=== PATIENT | female | born 1955 | race Caucasian/White ===

== ENCOUNTER 2020-07-10 00:31 | Observation (INO) ==
[2020-07-10] MEDS ORDERED: *HR* Heparin 5,000 UNIT/ML VIAL IVP ONE (00:43)
[2020-07-10] MEDS ORDERED: *HR* Heparin 5,000 UNIT/ML VIAL IVP PRN ×2 (00:43)
[2020-07-10] MEDS ORDERED: DilTIAZem 50 MG/50 ML IV.SOLN IVC SCH (00:45)
[2020-07-10] MEDS: Heparin 25,000UNIT/250ML 1/2NS 25,000 UNIT/250 ML IV.SOLN IVC SCH ×2 (01:02→21:59)
[2020-07-10 01:03] LABS: Basophils # 0.1 K/mcL (0.0-0.2); Basophils % 0.5 %; Eosinophils # 0.5 K/mcL (0.0-0.6); Eosinophils % 3.4 %; Hematocrit 43.6 % (35.3-44.9); Hemoglobin 14.4 g/dL (11.5-15.4); Immature Granulocytes % 0.6 % (0-4); Lymphocytes # 3.9 K/mcL (0.6-4.6); Lymphocytes % 28.5 %; Mean Corpuscular Hemoglobin 29.4 pg (28.0-33.3); Mean Corpuscular Volume 89.2 fL (83.0-100.0); Mean Platelet Volume 9.4 fL (9.4-12.4); Monocytes # 0.9 K/mcL (0.0-1.3); Monocytes % 6.8 %; Neutrophils # 8.2 K/mcL (1.6-8.9); Platelet Count 343 K/mcL (140-400); Red Blood Count 4.89 M/mcL (3.82-4.97); Segmented Neutrophils % 60.2 %; White Blood Count 13.6 K/mcL (4.3-11.1)
[2020-07-10 01:11] LABS: INR 0.9; Prothrombin Time 10.5 Seconds (9.4-12.1)
[2020-07-10 01:14] LABS: Activated Partial Thrombo Time 27.4 Seconds (26.0-36.0); Heparin anti-factor XA UFH < 0.04 IU/mL (0.30-0.70)
[2020-07-10] MEDS ORDERED: 0.9 % Sodium Chloride 500 ML ONE (01:16)
[2020-07-10 01:25] LABS: BUN/Creatinine Ratio 22 (6-26); Blood Urea Nitrogen 17 mg/dL (8-23); Calcium 9.5 mg/dL (8.6-10.3); Carbon Dioxide 27 mEq/L (23-29); Chloride 104 mEq/L (98-107); Glucose 271 mg/dL (70-105); Osmolality,Calculated 297 (280-300); Potassium 3.9 mEq/L (3.5-5.1); Sodium 138 mEq/L (136-145); Troponin I < 0.03 ng/mL (< 0.04); eGFR For African Americans > 60 (> 60); eGFR For Non-African Americans > 60 (> 60)
[2020-07-10 01:39] LABS: Thyroid Stimulating Hormone 5.977 mcIU/mL (0.340-5.600)
[2020-07-10] MEDS ORDERED: Naloxone 0.4 MG/ML INJ IVP PRN (03:52)
[2020-07-10] MEDS ORDERED: Dextrose Gel 15 GM/37.5 ML TUBE PO PRN ×2 (04:04)
[2020-07-10] MEDS ORDERED: *HR* Dextrose 50 % in Water (Vial) 50 ML VIAL IVP PRN (04:04)
[2020-07-10] MEDS ORDERED: D5% in Water 1,000 ML IVC PRN (04:04)
[2020-07-10] MEDS ORDERED: DilTIAZem CD (24hr) 120 MG CAP.ER.24H PO SCH ×2 (06:00→09:00)
[2020-07-10] MEDS: DilTIAZem CD (24hr) 120 MG CAP.ER.24H PO SCH (06:02)
[2020-07-10] MEDS ORDERED: Perflutren Lipid Microsphere 1.3 ML in 0.9 % Sodium Chloride 8.7 ML IVP PRN (07:29)
[2020-07-10] MEDS: Insulin LISPRO 300 UNITS/3 ML VIAL SQ SCH ×3 (07:52→16:37)
[2020-07-10 14:48] LABS: Estimated Average Glucose 171 mg/dl
[2020-07-10 14:52] LABS: Alanine Aminotransferase 53 Units/L (7-52); Albumin 3.8 g/dL (3.5-5.7); Albumin/Globulin Ratio 1.4 (1.1-2.2); Alkaline Phosphatase 104 Units/L (34-104); Aspartate Amino Transferase 34 Units/L (13-39); Bilirubin,Indirect 0.4 mg/dL (0.0-1.0); Bilirubin,Total 0.4 mg/dL (0.3-1.0); Globulin 2.7 g/dL (2.4-3.5); Magnesium 1.7 mg/dL (1.6-2.6); Phosphorous 4.5 mg/dL (2.7-4.5); Total Protein 6.5 g/dL (6.4-8.9); Troponin I < 0.03 ng/mL (< 0.04)
[2020-07-10] MEDS: Apixaban 5 MG TABLET PO SCH (16:37)
[2020-07-10] MEDS ORDERED: Fluticasone Propionate Nasal 50 MCG/SPRAY BOTTLE NS PRN (17:38)
[2020-07-10] MEDS ORDERED: Insulin LISPRO 300 UNITS/3 ML VIAL SQ SCH (21:00)
[2020-07-10] MEDS ORDERED: Loratadine 10 MG TABLET PO SCH (21:00)
[2020-07-11 04:49] LABS: Hematocrit 43.6 % (35.3-44.9); Hemoglobin 14.3 g/dL (11.5-15.4); Mean Corpuscular HGB Conc 32.8 g/dL (31.6-35.5); Mean Corpuscular Volume 91.6 fL (83.0-100.0); Mean Platelet Volume 9.3 fL (9.4-12.4); Platelet Count 329 K/mcL (140-400); Red Blood Count 4.76 M/mcL (3.82-4.97); Red Cell Distribution Width 12.2 % (11.5-14.5); White Blood Count 13.6 K/mcL (4.3-11.1)
[2020-07-11] MEDS: DilTIAZem CD (24hr) 120 MG CAP.ER.24H PO SCH (05:29)
[2020-07-11 06:39] VITALS: BP 143/75
[2020-07-11] MEDS: Insulin LISPRO 300 UNITS/3 ML VIAL SQ SCH (07:33)
[2020-07-11] MEDS: Apixaban 5 MG TABLET PO SCH (08:39)
[2020-07-11] MEDS ORDERED: Aspirin Enteric Coated 81 MG Tablet PO SCH (09:00)
[2020-07-11] MEDS ORDERED: lisinopriL 20 MG TABLET PO SCH (09:00)
[2020-07-11] MEDS ORDERED: Venlafaxine XR (24 HR) 150 MG CAP.ER.24H PO SCH (09:00)
== END 2020-07-11 10:36 | disposition home or self-care (01) ==
LOC: 2ANU 00:31 → EMEROOARM 00:31 → SUATTDRO 03:27 → 2ANU 04:20
PROVIDERS: ADMIT Internal Medicine; ATTEND Student in an Organized Health Care Education/Training Program

== ENCOUNTER 2021-01-04 10:38 | Observation (INO) ==
[2021-01-04] MEDS ORDERED: DilTIAZem 50 MG/50 ML IV.SOLN IVC SCH (11:00)
[2021-01-04 11:26] LABS: Basophils # 0.1 K/mcL (0.0-0.2); Basophils % 0.7 %; Eosinophils # 0.3 K/mcL (0.0-0.6); Eosinophils % 2.3 %; Hematocrit 46.8 % (35.3-44.9); Hemoglobin 15.4 g/dL (11.5-15.4); Immature Granulocytes % 0.4 % (0-4); Lymphocytes # 2.7 K/mcL (0.6-4.6); Lymphocytes % 22.3 %; Mean Corpuscular HGB Conc 32.9 g/dL (31.6-35.5); Mean Corpuscular Hemoglobin 30.2 pg (28.0-33.3); Mean Corpuscular Volume 91.8 fL (83.0-100.0); Mean Platelet Volume 9.6 fL (9.4-12.4); Monocytes # 0.8 K/mcL (0.0-1.3); Monocytes % 6.5 %; Neutrophils # 8.1 K/mcL (1.6-8.9); Platelet Count 300 K/mcL (140-400); Red Cell Distribution Width 12.5 % (11.5-14.5); Segmented Neutrophils % 67.8 %
[2021-01-04 11:47] LABS: BUN/Creatinine Ratio 19 (6-26); Blood Urea Nitrogen 15 mg/dL (8-23); Calcium 9.5 mg/dL (8.6-10.3); Carbon Dioxide 23 mEq/L (23-29); Chloride 103 mEq/L (98-107); Glucose 251 mg/dL (70-105); Osmolality,Calculated 291 (280-300); Potassium 3.8 mEq/L (3.5-5.1); Sodium 136 mEq/L (136-145); eGFR For African Americans > 60 (> 60); eGFR For Non-African Americans > 60 (> 60)
[2021-01-04 11:49] LABS: Troponin I < 0.03 ng/mL (< 0.04)
[2021-01-04] MEDS ORDERED: 0.9 % Sodium Chloride 1,000 ML IVC ONE (11:56)
[2021-01-04] MEDS ORDERED: D5% in Water 1,000 ML IVC PRN (12:36)
[2021-01-04] MEDS ORDERED: *HR* Dextrose 50 % in Water (Vial) 50 ML VIAL IVP PRN (12:36)
[2021-01-04] MEDS ORDERED: Dextrose Gel 15 GM/37.5 ML TUBE PO PRN ×2 (12:36)
[2021-01-04] MEDS ORDERED: Naloxone 0.4 MG/ML INJ IVP PRN (12:36)
[2021-01-04] MEDS ORDERED: Ondansetron 4 MG/2 ML VIAL IVP PRN (12:36)
[2021-01-04] MEDS ORDERED: Perflutren Lipid Microsphere 1.3 ML in 0.9 % Sodium Chloride 8.7 ML IVP PRN (12:39)
[2021-01-04] MEDS ORDERED: Calcium Gluconate 1gm/50mL 1 GM/50 ML BAG IVPB ONE (13:35)
[2021-01-04 16:43] LABS: Thyroid Stimulating Hormone 1.659 mcIU/mL (0.340-5.600); Troponin I 0.04 ng/mL (< 0.04)
[2021-01-04] MEDS: Insulin LISPRO 300 UNITS/3 ML VIAL SUBQ SCH (17:25)
[2021-01-04] MEDS: Apixaban 5 MG TABLET PO SCH (21:43)
[2021-01-04] MEDS: DilTIAZem SR (12hr) 90 MG CAP.ER.12H PO SCH (21:43)
[2021-01-05 03:31] LABS: Basophils # 0.1 K/mcL (0.0-0.2); Basophils % 0.5 %; Eosinophils # 0.5 K/mcL (0.0-0.6); Eosinophils % 3.7 %; Hemoglobin 13.5 g/dL (11.5-15.4); Immature Granulocytes % 0.5 % (0-4); Lymphocytes # 3.7 K/mcL (0.6-4.6); Lymphocytes % 28.8 %; Mean Corpuscular HGB Conc 32.1 g/dL (31.6-35.5); Mean Corpuscular Hemoglobin 29.5 pg (28.0-33.3); Mean Corpuscular Volume 91.9 fL (83.0-100.0); Mean Platelet Volume 9.4 fL (9.4-12.4); Monocytes # 1.1 K/mcL (0.0-1.3); Monocytes % 8.2 %; Neutrophils # 7.5 K/mcL (1.6-8.9); Platelet Count 281 K/mcL (140-400); Red Blood Count 4.57 M/mcL (3.82-4.97); Red Cell Distribution Width 12.5 % (11.5-14.5); Segmented Neutrophils % 58.3 %; White Blood Count 12.9 K/mcL (4.3-11.1)
[2021-01-05 03:52] LABS: BUN/Creatinine Ratio 21 (6-26); Blood Urea Nitrogen 15 mg/dL (8-23); Calcium 8.9 mg/dL (8.6-10.3); Carbon Dioxide 22 mEq/L (23-29); Chloride 109 mEq/L (98-107); Glucose 168 mg/dL (70-105); Magnesium 1.8 mg/dL (1.6-2.6); Osmolality,Calculated 293 (280-300); Sodium 139 mEq/L (136-145); eGFR For African Americans > 60 (> 60); eGFR For Non-African Americans > 60 (> 60)
[2021-01-05 07:28] VITALS: BP 115/67
[2021-01-05] MEDS: DilTIAZem SR (12hr) 90 MG CAP.ER.12H PO SCH (07:52)
[2021-01-05] MEDS: Insulin LISPRO 300 UNITS/3 ML VIAL SUBQ SCH (07:52)
[2021-01-05] MEDS: Apixaban 5 MG TABLET PO SCH (07:52)
== END 2021-01-05 11:06 | disposition home or self-care (01) ==
LOC: EMEROOARM 10:38 → 2ANU 10:38 → SUATTDRO 12:52 → 2ANU 14:12
PROVIDERS: ADMIT Internal Medicine; ATTEND Internal Medicine